=== PATIENT | male | born 1935 | race Caucasian/White ===

== ENCOUNTER 2016-09-15 06:11 | Inpatient (IN) | payer MEDICARE, BC ==
[~2016-09-15] VITALS: Ht 172.7 cm; Wt 96.8 kg
--- NOTE | ~2016-09-15 | DS ---
PATIENT'S NAME: MARI DORSEY [facility] AGE: 81 Y [address] ROOM: [place] [address] LOCATION: G3N ADMIT DATE: 09/15/2016 Discharge Summary DISCHARGE DATE: 09/19/2016 FAMILY PHYSICIAN: Rudolph Portillo MD ATTENDING PHYSICIAN: Shorty Gallardo ADMITTING DIAGNOSES: 1. Lumbar degenerative disk disease. 2. Lumbar spinal stenosis. 3. Lumbar herniated disc. 4. Lumbar radiculopathy. DISCHARGE DIAGNOSES: 1. Lumbar degenerative disk disease. 2. Lumbar spinal stenosis. 3. Lumbar herniated disc. 4. Lumbar radiculopathy. 5. Postoperative urinary retention, resolved. 6. Atelectasis. 7. Fever of unknown origin. CONSULTATIONS: Dr. Berry Rudolph, [facility], and physical therapy. PROCEDURES PERFORMED: Laminotomy and diskectomy L3-L4 and decompression L4- L5. ADMITTING HISTORY AND PHYSICAL: Briefly, this is an 81-year-old male, who I have followed for symptomatic lumbar spine disease. The patient had failed conservative treatment and was offered surgery. HOSPITAL COURSE: The patient was admitted through same-day surgery. He underwent the aforementioned surgical procedure. He recovered without difficulty. He did have stable vital signs but did develop an isolated fever postoperatively and workup was negative. He was gradually mobilized with therapy. He did have a bout of postoperative urinary retention that did resolve with catheterization. The patient's pain was controlled and his incisions were clean, dry, and intact. He had no evidence of a spinal headache from incidental durotomy. He was discharged home in stable condition with the following instructions: 1. Activity is light. He is to wear his brace when he is up and out of bed. 2. He is to leave his dressing clean, dry, and intact. 3. He will continue with his home medications and use oral pain medicine when necessary that is prescribed at discharge. We will see in the clinic in 10 days. He will call if there is any increasing PATIENT'S NAME: MARI DORSEY [facility] AGE: 81 Y [address] ROOM: [place] [address] LOCATION: [facility] ADMIT DATE: 09/15/2016 Discharge Summary DISCHARGE DATE: 09/19/2016 FAMILY PHYSICIAN: Rudolph Portillo MD ATTENDING PHYSICIAN: Shorty Gallardo pain, fevers, chills, weakness, bowel or bladder dysfunction, or any other concerns or issues arise. MD KAYA REGALADOM/modl /[id number] d: 09/19/16930 t: 10/01/16 0733, DISCHARGE SUMMARY
--- NOTE | ~2016-09-15 | OR ---
PATIENT'S NAME: MARI DORSEY [facility] AGE: 81 Y [address] ROOM: [place] [address] LOCATION: [facility] ADMIT DATE: 09/15/2016 OR/Procedure Report DISCHARGE DATE: FAMILY PHYSICIAN: Rudolph Portillo MD ATTENDING PHYSICIAN: Shorty Gallardo SURGEON: Shorty Gallardo MD HUMAN RESOURCES CONSULTANT: DATE OF PROCEDURE: 09/15/2016 PREOPERATIVE DIAGNOSES: 1. Lumbar degenerative disk disease. 2. Lumbar spinal stenosis. 3. Lumbar herniated disk. 4. Lumbar spondylosis. 5. Lumbar radiculopathy. POSTOPERATIVE DIAGNOSES: 1. Lumbar degenerative disk disease. 2. Lumbar spinal stenosis. 3. Lumbar herniated disk. 4. Lumbar spondylosis. 5. Lumbar radiculopathy. PROCEDURES PERFORMED: 1. Lumbar hemilaminotomy left at L4-L5. 2. Transpedicular transforaminal decompression with partial diskectomy right at L3-L4. PARACHUTE TAPER: RUT Rosa ANESTHESIA: General. ESTIMATED BLOOD LOSS: 50 mL. COMPLICATIONS: Incidental durotomy repaired. FINDINGS: Large herniated disk, right foraminal L3-L4 and severe stenosis L4- L5. OPERATIVE INDICATIONS: The patient is an 81-year-old male whom I have followed for symptomatic lumbar spinal stenosis including the herniated disk. He was offered surgery in the form of decompression at L4-L5 through hemilaminotomy and a transpedicular transforaminal decompression including partial diskectomy. After details, risks, benefits, and options were explained, he freely consented to surgery. PATIENT'S NAME: MARI DORSEY [facility] AGE: 81 Y [address] ROOM: [place] [address] LOCATION: [facility] ADMIT DATE: 09/15/2016 OR/Procedure Report DISCHARGE DATE: FAMILY PHYSICIAN: Rudolph Portillo MD ATTENDING PHYSICIAN: Shorty Gallardo OPERATIVE NARRATIVE: After the patient was correctly identified and the operative site was initialed, he was taken back to the operating room, placed in the supine position. After general anesthesia was induced, he was placed in the prone position on the Heber frame with all bony prominences well- padded and protected. The back was prepped and draped in the usual sterile fashion. Time-out was taken to verify the patient and procedure. Under fluoroscopic control, an 18-gauge spinal needle was advanced through the skin to dock on the right L3 pars and pedicle and transverse process junction. After successful docking, 10 mL was injected and the needle was withdrawn. A longitudinal incision was made for L3 and L4 at the site of the needle placement. The fascia was opened and through the incision, successive tubular dilators were introduced under fluoroscopy up to a size 6 x 26 mm working retractor. It was docked in the foraminal region on AP and lateral fluoroscopy. The final retractor was locked in position and verified on fluoroscopy. The microscope was brought in. Under magnified vision, the soft tissue was debrided from the pars transverse process pedicle in the facet. Kerrisons were used to resect a small amount of the pars and transverse process in the facet. The transverse ligament was released and the foraminal region was entered. The exiting nerve root was identified and protected. Large herniated disk was identified below. It was incised, teased free, grasped, and removed. After decompression, the area probed freely. It was irrigated and dried. 40 mg of Depo-Medrol was injected dorsally over the dura and nerve root. Next, through the same incision, the tubular dilators were introduced up to a size 7 x 26 moderate working retractor over the lamina of L4-L5. This was verified in AP and lateral fluoroscopy. The microscope was again brought in. A high-speed bur was used to create a laminotomy defect. It was generous across that segment. There was a tiny incidental durotomy that occurred that was repaired at the end of the case with a single 5-0 silk suture in a [id number] fashion. The decompression was completed with the Kerrison's. The ligament was released and resected. After the dura was completely decompressed and lateral recesses were undercut, the area was probed freely. It was irrigated and dried. A small piece of DuraGen was placed over the repair of the dura and DuraSeal was injected to seal the area. The retractors were removed from the wound. #1 Vicryl was used to close the fascia. 0 Vicryl on subcutaneous tissue and severo on the skin. Sterile dressing was applied. The patient was awakened from anesthesia and taken to the recovery room in stable condition. MD ALMA REGALADO/mike PATIENT'S NAME: MARI DORSEY [facility] AGE: 81 Y [address] ROOM: [place] [address] LOCATION: [facility] ADMIT DATE: 09/15/2016 OR/Procedure Report DISCHARGE DATE: FAMILY PHYSICIAN: Rudolph Portillo MD ATTENDING PHYSICIAN: Shorty Gallardo /[id number] d: 09/15/16 1528 t: 09/16/16 1029, OPERATIVE SUMMARY
--- NOTE | ~2016-09-15 | CON ---
PATIENT'S NAME: MARI DORSEY [facility] AGE: 81 Y [address] ROOM: [place] [address] LOCATION: G3N ADMIT DATE: 09/15/2016 Consultation DISCHARGE DATE: FAMILY PHYSICIAN: Rudolph Portillo MD ATTENDING PHYSICIAN: Shorty Gallardo DATE OF CONSULTATION: 09/17/2016 REFERRING PHYSICIAN: CORINE SANTOS MD CHIEF COMPLAINT: Urinary retention. HISTORY OF PRESENT ILLNESS: The patient is a pleasant 81-year-old male who recently underwent lumbar decompression and partial diskectomy by Dr. Gallardo on September 15, 2016. He has had some difficulty with postoperative urinary retention, requiring several straight catheterizations. He does report a history of prostate cancer, for which he underwent brachytherapy, which the patient states was performed 4 to 5 years ago. He also has a long history of BPH with urinary symptoms. He is currently taking terazosin 5 mg daily. He reports gradual worsening of his urinary symptoms over the last several years including weakening of his urinary stream. Over the last 24 hours, he has not needed any further catheterizations, and he has been voiding on his own. His white blood cell count today was 8.3, and serum creatinine level was 0.9. He did have some low- grade fevers overnight, and a urinalysis was obtained, which was negative for nitrites, leukocytes, and no blood. The patient denies any gross hematuria. The patient denies any prior episodes of acute urinary retention. The patient states that he has not seen a urologist for some time. He has no further questions or concerns at this time. PAST MEDICAL HISTORY: 1. History of prostate cancer. 2. BPH. 3. Coronary artery disease. 4. Hyperlipidemia. 5. Hypertension. 6. Sleep apnea. 7. GERD. 8. Hiatal hernia. 9. Osteoarthritis. 10. Polymyalgia rheumatica. 11. Type 2 diabetes mellitus. PAST SURGICAL HISTORY: 1. Brachytherapy for prostate cancer in 2006. PATIENT'S NAME: MARI DORSEY [facility] AGE: 81 Y [address] ROOM: [place] [address] LOCATION: G3N ADMIT DATE: 09/15/2016 Consultation DISCHARGE DATE: FAMILY PHYSICIAN: Rudolph Portillo MD ATTENDING PHYSICIAN: Shorty Gallardo 2. Appendectomy. 3. Coronary artery bypass graft in 2011. 4. Tonsillectomy. 5. Right cataract surgery in 2006. FAMILY HISTORY: The patient denies any known family history of genitourinary abnormalities or malignancy. SOCIAL HISTORY: The patient is retired. The patient used to work as a full-time rancher. He is . He does have a past history of smoking but quit at age 28. He does drink alcohol on rare occasion. ALLERGIES: TO SIMVASTATIN. MEDICATIONS: See hospitalization medication reconciliation. REVIEW OF SYSTEMS: A full 10+ point review of systems was performed with pertinent positive and negative findings included in the history of present illness. All other systems are reviewed and are otherwise negative. PHYSICAL EXAMINATION: VITAL SIGNS: Stable. CONSTITUTIONAL: In no acute distress. The patient is awake and oriented. HEENT: Extraocular muscles intact. Mucous membranes moist. No drainage per ears and nose. CARDIAC: Good peripheral perfusion. RESPIRATORY: No audible wheezing or stridor. ABDOMEN: Benign, soft, nontender, nondistended. GENITOURINARY: Normal circumcised phallus with no penile masses or skin abnormalities detected. His urethral meatus is normal in location and no urethral discharge noted. Testes palpably normal with no testicular masses. MUSCULOSKELETAL: Moves all extremities. NEUROLOGIC: No focal deficits noted. HEMATOLOGIC: No active sites of bruising or bleeding. PSYCHIATRIC: Normal affect and answers questions appropriately. IMPRESSION: 1. History of prostate cancer, status post brachytherapy. 2. BPH with bladder outlet obstruction. 3. Recent postoperative urinary retention. PATIENT'S NAME: MARI DORSEY [facility] AGE: 81 Y [address] ROOM: [address] [address] LOCATION: [facility] ADMIT DATE: 09/15/2016 Consultation DISCHARGE DATE: FAMILY PHYSICIAN: Rudolph Portillo MD ATTENDING PHYSICIAN: Shorty Gallardo PLAN: I had a long discussion today with the patient regarding my findings as well as plan. I will have nursing staff continue to closely monitor his residuals, and hopefully we can continue to hold off on placement of indwelling Walsh catheter. We will plan for the primary care team to continue him on his terazosin. I would be a little bit hesitant in the in increasing the dosage of his terazosin given the patient's already instability with potential for increasing risk for orthostatic hypotension and falls. Given his worsening urinary symptoms, however, over the years, I do think we need further evaluation as an outpatient, and I will plan to see him back for followup at my outreach clinic in [place] on October 10, 2016, to check back on his residual but also consider cystoscopy at that time to get a better sense of the degree of bladder outlet obstruction but also the state of his bladder. The patient may be a candidate for further treatment down the road with possible UroLift procedure if he is noted to have a considerable amount of bladder outlet obstruction. Please do not hesitate to call with any further questions or concerns regarding this gentleman. Ultimately, if the patient does require placement of indwelling Walsh catheter for significantly elevated postvoid residuals, then we will plan to just keep that catheter indwelling until we see him back at my outreach clinic in [place]. CORY BLACKWELL MD GP/modl /[id number] d: 09/17/16 2324 t: 09/27/16 0823, CONSULTATION REPORT
--- NOTE | ~2016-09-15 | HP ---
PATIENT'S NAME: EZEQUIEL DORSEY [facility] AGE: 81 Y [address] ROOM: [address] [place], [place] [address] LOCATION: [facility] ADMIT DATE: 09/15/2016 History & Physical DISCHARGE DATE: FAMILY PHYSICIAN: Rudolph Portillo MD ATTENDING PHYSICIAN: Shorty Gallardo DATE OF SERVICE: CHIEF COMPLAINT: Low back pain. HISTORY OF PRESENT ILLNESS: Ezequiel is an 81-year-old male who I have been asked to see for medical management. The patient was admitted today to the hospital and has undergone a surgery on his lumbar spine. I have read the operative note per Dr. Gallardo. When I see him, the patient is lying quietly in bed. He says his pain control is adequate. His states that he is known to have coronary artery disease, diabetes mellitus, type 2 requiring insulin, and we will follow him for those problems. His is present for the interview. I have reviewed his preop history and physical and also Dr. Gallardo's history and physical. CURRENT MEDICATIONS: 1. Losartan 100 mg one b.i.d. 2. Tylenol as needed. 3. Lasix 40 mg a day. 4. Glipizide 10 mg a day. 5. Lantus 10 units a day. 6. Metformin 500 mg b.i.d. 7. Isosorbide mononitrate 60 mg once a day. 8. Prilosec 20 mg a day. 9. Terazosin 5 mg a day. 10. Tylenol as needed. ALLERGIES: ATORVASTATIN. IMMUNIZATIONS: Status unknown. SOCIAL HISTORY: He does not smoke. FAMILY HISTORY: Negative for problems with general anesthesia or bleeding disorder. PATIENT'S NAME: EZEQUIEL DORESY [facility] AGE: 81 Y [address] ROOM: [address] [place], [place] [address] LOCATION: [facility] ADMIT DATE: 09/15/2016 History & Physical DISCHARGE DATE: FAMILY PHYSICIAN: Rudolph Portillo MD ATTENDING PHYSICIAN: Shorty Gallardo PAST SURGICAL HISTORY: Previous tonsillectomy, appendectomy, heart surgery, coronary artery bypass graft 2011, and cataract surgery bilaterally. REVIEW OF SYSTEMS: Positive for hypertension, essential; coronary artery disease; stable angina pectoris; diabetes mellitus, type 2 insulin-requiring; chronic GERD; BPH; and generalized osteoarthritis. Chronic low back pain, lumbar region with radicular pain. PHYSICAL EXAMINATION: VITAL SIGNS: Per nurse's notes. GENERAL: He is lying in bed, flat. He is oriented to person, place, and time. He is competent. HEENT: Shows teeth in fair repair. Pupils react to light. TMs not visualized. Mucous murmurs are slightly dry. NECK: Unremarkable. No obvious adenopathy. No thyroid enlargement. LUNGS: Clear without wheeze or rub. HEART: Shows no murmur, gallop, or rub. ABDOMEN: Soft. PELVIC/RECTAL: Not done. EXTREMITIES: Unremarkable. Pulses full throughout. NEUROLOGIC EXAM: Shows no lateralizing signs. Cranial nerves intact. ASSESSMENT: 1. Low back pain secondary to lumbar osteoarthritis. 2. Status post back surgery, lumbar region. See Dr. Gallardo's note. 3. Diabetes mellitus, type 2, insulin requiring. 4. Coronary artery disease. 5. Stable angina pectoris. 6. History of prostate cancer. 7. Benign prostatic hypertrophy. 8. Gastroesophageal reflux disease. 9. Previous coronary artery bypass surgery. 10. Status post T and A. 11. Status post appendectomy. 12. Status post cataract surgery bilaterally. 13. History of generalized osteoarthritis. 14. Obstructive sleep apnea, on BiPAP. PLAN: Follow daily. PATIENT'S NAME: EZEQUIEL DORSEY [facility] AGE: 81 Y [address] ROOM: [place] [address] LOCATION: [facility] ADMIT DATE: 09/15/2016 History & Physical DISCHARGE DATE: FAMILY PHYSICIAN: Rudolph Portillo MD ATTENDING PHYSICIAN: Shorty Gallardo CORINE SANTOS MD ENVIRONMENTAL HEALTH SANITARIAN/modl /[id number] D: 446 T: 721 HISTORY & PHYSICAL
[~2016-09-15 06:11] MED LIST: COZAAR50 MG PO; CPAP INH; DELTASONE5 MG PO; GLUCOPHAGE500 MG PO; GLUCOTROL10 MG PO; LANTUS (IN100 UNIT/M SUB-Q; LASIX40 MG PO; PRILOSEC20 MG PO; TERAZOSIN HCL5 MG PO; TYLENOL325 MG PO
[2016-09-15 07:00] LABS: INR - (THERAPEUTIC) 1.06 (0.92-1.07); PROTIME 11.1 SECONDS (9.8-11.4)
--- NOTE | 2016-09-15 17:16 | NUR ---
Pt here from PACU at 1250. He will have last hrly VS due for you at 1930. Pt had dura tear so to be flat in bed except can have HOB up 20 degrees to eat. Pt can log roll side to side. Back dressing dry and intact. Pt voided 120 ml at 1700. Still urge to void. Bladder scan at 1715 was 675 ml. Pt attempting to void once more and if unsuccessful, will contact doctor. Pt CSM WNL. IS use at 1000. O2 at 2 liters. Pt rated pain up to 6 when got back. [place] at 1410. Now painis 4 when moves and says none if lies still. He ate lunch about 1430. at bedside. Pt has own CPAP for sleep apnea. He is diabetic. Awaiting Dr Rudolph to round and get sliding scale orders. at bedside.
--- NOTE | 2016-09-16 04:29 | NUR ---
Shift Summary: Patient has mona flat in bed all shift except a brief time to eat. Can have HOB up to 20 degrees to eat and drink. Has not taken any pain medication. States he doesn't have pain with rest. He had a mujica inserted yesterday for retention. 1650ml out this shift. He is diabetic. BS at HS was 181. He is on a Mild SS. No insulin required.
--- NOTE | 2016-09-16 15:38 | NUR ---
Significant Event: pt alert and oriented. up this afternoon after trial of raising head of bed without headache. елена well. ambulated with 1 assist to the recliner and then to the bed. used walker at home also. dressing to lower back intact. in the room most of this shift. mujica removed this afternoon at 1445. no void as of yet. refused pain meds. states ill let you know when i want one. Follow up:
--- NOTE | 2016-09-17 03:26 | NUR ---
Shift Summary: Patient had an extra large incontinent urine during the night. Order to put in mujica and leave if patient has retention greater than 500ml or uncomfortable and unable to void. Patient had temp of 102 at beginning of shift. Gave tylenol and temp only came down to 101.4. Patient started on breathing treatments. Next temp was 99.5. Patient is disoriented or forgetful at times. Wears his own CPAP at night. Had to change his back dressing due to urine on the dress from his incontinence. Patient was able to stand at the bedside but not ambulate. He has not taken any narcotic pain medications.
[2016-09-17 08:08] LABS: BILIRUBIN URINE NEGATIVE (NEGATIVE); BLOOD URINE NEGATIVE /UL (NEGATIVE); COLOR URINE YELLOW (YELLOW); GLUCOSE URINE NEGATIVE (NEGATIVE); KETONE URINE NEGATIVE (NEGATIVE); LEUKOCYTES URINE NEGATIVE /UL (NEGATIVE); NITRITE URINE NEGATIVE (NEGATIVE); PROTEIN URINE NEGATIVE (NEGATIVE); SPEC GRAVITY URINE 1.015 (1.003-1.035); TURBIDITY URINE CLEAR (CLEAR); UROBILINOGEN URINE NORMAL (NORMAL)
[2016-09-17 08:14] LABS: BASOPHIL % 0.4 %; EOSINOPHIL # 0.1 K/uL (0.0-0.5); EOSINOPHIL % 0.6 %; HEMATOCRIT 34.6 % (33.0-50.0); HEMOGLOBIN 12.1 g/dL (11.0-16.0); IMMATURE GRANULOCYTE % 0.5 %; LYMPHOCYTE % 12.1 %; MCH 30.1 pg (27.0-34.0); MCV 86.1 fl (83.0-98.0); MONOCYTE # 0.8 K/uL (0.0-1.0); MONOCYTE % 9.8 %; MPV 9.5 fl (9.4-12.4); NEUTROPHIL # (ANC) 6.4 K/uL (1.4-9.0); NEUTROPHIL % 76.6 %; NRBC % 0 /100WBC (0-0.00); PLATELET COUNT 163 K/uL (150-450); RDW-CV 13.5 % (11.9-14.6); WBC 8.3 K/uL (4.0-11.0)
[2016-09-17 08:21] LABS: RBC 4.02 M/uL (3.50-5.50)
[2016-09-17 08:29] LABS: ALBUMIN 2.8 gm/dL (3.5-5.0); ALK PHOS 112 IU/L (33-138); ALT 19 IU/L (12-78); ANION GAP 10.9 (10.0-19.0); AST 25 IU/L (10-40); BLOOD UREA NITROGEN 15 mg/dL (6-24); CALCIUM 8.4 mg/dL (8.5-10.5); CHLORIDE 106 mMol/L (96-110); CO2 25 mMol/L (22-32); CREATININE 0.9 mg/dL (0.6-1.3); ESTIMATED GFR (MDRD EQUATION) > 60; POTASSIUM 3.9 mMol/L (3.7-5.1); SODIUM 138 mMol/L (135-145); TOTAL BILIRUBIN 0.7 mg/dL (0.0-1.5); TOTAL PROTEIN 6.4 g/dL (6.0-8.4)
--- NOTE | 2016-09-17 19:32 | NUR ---
Significant Event: Pt is a/o. Cooperative with cares. PT attempted to amb. patient, he only stood for a few seconds. Pt needs much encouragement to take pain meds. Was able to get into chair after pain meds this am. Walked to door this afternoon with 2 assist, walker and gait belt. Even got from chair to bed by himself, tabs monitor placed and reinforced need for help. Dressing changed by Dr Gallardo. Voided 200+ and residual of 341, info told to Dr Catherine. Tenzin last @ 0890. CSM WNL. Brace on when oOB. No temp this shift. Follow up:
--- NOTE | 2016-09-18 04:05 | NUR ---
Shift Summary: Patient can ambulate with one assist and walker. Wears back brace when up. Likes to wear it in bed also. This am, wants a post void bladder scan done and call results. PT to be aggressive in patient's therapy and if it is felt patient will not be able to go home, notify early. He wants to have CM work on placement if patient unable to go home today. plans to make rounds this evening around 4-5pm.
--- NOTE | 2016-09-18 10:15 | NUR ---
SPOKE TO PATIENT AND HIS SPOUSE AT THE BEDSIDE. INTRODUCED CM AND OUR ROLE. PATIENT LIVES IN OWN HOME WITH SPOUSE. HE IS DISAPPOINTED THAT HE IS NOT BEING DISCHARGE HOME TODAY. PATIENT DOES NOT ANTICIPATE ANY DISCHARGE NEEDS AT THIS TIME.
--- NOTE | 2016-09-18 18:53 | NUR ---
Significant Event: UP TO BR AND OUT IN [place] WITH 1 ASSIST, TOLERATES ACTIVITY FAIR. HAS SOME DIFF WITH GETTING OUT OF CHAIR. BACK DRSG D/I. CSM GOOD TO ALL EXTREM. REFUSED PAIN MEDS WHEN OFFERED THOUGHOUT SHIFT. WEAR BACK BRACE AT ALL TIMES. IS INCONTANT OF URINE AND REPORTS HAS BEEN THIS WAY FOR YEARS, IS PLANING ON EARLY AM DISMISSAL SUNDAY. Follow up:
--- NOTE | 2016-09-19 04:16 | NUR ---
Significant Event: Alert/oriented x3. Plans to go home today. spent the night. VSS. CSM WNL. Prefers to wear the brace at all times. No BM, has flatus, attempted BM early in shift - none. Tylenol 650 mg po at 2126 for pain 04/21. Saline lock in left anterior forearm. Bilateral calf pumps. Accuchecks Ac, HS; 283 at HS - 4 U Novolog per mild sliding scale, scheduled Levemir 11 U at HS. 1 assist with ambulation using walker and gait belt. Dressing C/D/I. Follow up:
--- NOTE | 2016-09-19 04:25 | NUR ---
Pt refused to take anything for constipation, no BM since 09/14/16.
[2016-09-19] MEDS ORDERED: NORCO 5-325 TA1 EACH PO (07:44)
[2016-09-19] MEDS ORDERED: MIRALAX17 GM PO (07:47)
--- NOTE | 2016-09-19 09:45 | NUR ---
patient dismissed to home. criteria met to meet goals. rx slip, return appt card, dismissal teaching, wound care, new meds info, patient given instructions on all of these and him and his verbalize understanding. instructed to take miralax every other day. to front door with TA to meet .
== END 2016-09-19 09:30 | disposition disaster alternative care site (69) | DRG 519 ==
LOC: GSDC 06:11 → G3N 06:11 → GSDC 12:51 → GPOC 14:00 → GSDC 14:00 → G3N 09-19 09:30
PROVIDERS: Family Medicine; ADMIT Orthopaedic Surgery Orthopaedic Surgery of the Spine
DX: M51.16 Intervertebral disc disorders with radiculopathy, lumbar region (principal); J98.11 Atelectasis; E11.65 Type 2 diabetes mellitus with hyperglycemia; R50.9 Fever, unspecified; G97.41 Accidental puncture or laceration of dura during a procedure; M48.06 Spinal stenosis, lumbar region; M47.26 Other spondylosis with radiculopathy, lumbar region; M43.16 Spondylolisthesis, lumbar region; I10 Essential (primary) hypertension; Z79.4 Long term (current) use of insulin; I25.119 Atherosclerotic heart disease of native coronary artery with unspecified angina pectoris; G47.33 Obstructive sleep apnea (adult) (pediatric); E78.5 Hyperlipidemia, unspecified; N40.1 Benign prostatic hyperplasia with lower urinary tract symptoms; R33.8 Other retention of urine; N32.0 Bladder-neck obstruction; M35.3 Polymyalgia rheumatica; M16.11 Unilateral primary osteoarthritis, right hip; K21.9 Gastro-esophageal reflux disease without esophagitis; Z95.1 Presence of aortocoronary bypass graft; Z79.52 Long term (current) use of systemic steroids; Z85.46 Personal history of malignant neoplasm of prostate; Z85.828 Personal history of other malignant neoplasm of skin; Z87.891 Personal history of nicotine dependence; Y65.8 Other specified misadventures during surgical and medical care
CPT/HCPCS: C1763; J0690; J0696; J1040; J2001; J2405; J3480; J7030; J7040; J7050; J7512